=== PATIENT | female | born 1970 ===

== ENCOUNTER 2017-02-23 11:06 | Outpatient (CLI) | payer MEDICAID ==
--- NOTE | 2017-02-24 09:04 | Mammography Report ---
Bilateral mammogram: No previous studies available. CAD study utilized. Findings: Predominance adipose tissue bilaterally. Benign calcifications bilaterally. Postsurgical scar left breast. Subareolar density left breast measuring 1 cm. Impression: Subareolar density left breast. Comparison with previous studies is recommended. If previous studies are not available spot mag and if necessary sonographic examination advised. BI-RADS CATEGORY: 0 = Needs additional imaging evaluation ACR BI-RADS MAMMOGRAPHIC CODES: 0 = Needs additional imaging evaluation; 1 = Negative; 2 = Benign; 3 = Probably benign; 4 = Suspicious; 5 = Malignant; 6 = Known biopsy-proven malignancy COMMENT: 1. Dense breast tissue, i.e., adenosis, fibrocystic changes, etc., may obscure an underlying neoplasm. 2. Approximately 10% of cancers are not detected with mammography. 3. A negative mammography report should not delay biopsy if a clinically suspicious mass is present. COMMENT: Patient follow-up letters are generated in [email or web address].
== END 2017-02-23 11:07 | disposition home or self-care (01) ==
LOC: SPVWC 11:06
PROVIDERS: ATTEND Obstetrics & Gynecology
DX: Z12.31 Encounter for screening mammogram for malignant neoplasm of breast (principal)
CPT/HCPCS: 77067; G0202